=== PATIENT | female | born 1940 | race Caucasian/White ===

== ENCOUNTER → 2023-06-18 10:19 | Outpatient (REF) | payer OTHER, SELFPAY | LOC: RAD 10:19 | PROVIDERS: ATTENDING PHYSICIAN Nurse Practitioner Adult Health; FAMILY PHYSICIAN Specialist | DX: M25.512 Pain in left shoulder (principal); M25.561 Pain in right knee | CPT/HCPCS: 73030; 73564 ==

== ENCOUNTER → 2023-08-28 17:42 | Outpatient (REF) | payer OTHER, SELFPAY | LOC: PAVMRI 17:42 | PROVIDERS: ATTENDING PHYSICIAN Specialist; FAMILY PHYSICIAN Internal Medicine | DX: M25.512 Pain in left shoulder (principal) | CPT/HCPCS: 73221 ==

== ENCOUNTER → 2023-10-12 13:04 | Outpatient (REF) | payer OTHER, SELFPAY | LOC: WDC 13:04 | PROVIDERS: ATTENDING PHYSICIAN Family Medicine | DX: Z12.31 Encounter for screening mammogram for malignant neoplasm of breast (principal) | CPT/HCPCS: 77063; 77067 ==

== ENCOUNTER → 2024-10-13 13:45 | Outpatient (REF) | payer OTHER, SELFPAY | LOC: WDC 13:45 | PROVIDERS: ATTENDING PHYSICIAN Family Medicine | DX: Z12.31 Encounter for screening mammogram for malignant neoplasm of breast (principal) | CPT/HCPCS: 77063; 77067 ==

== ENCOUNTER → 2024-11-22 12:53 | Outpatient (REF) | payer OTHER, SELFPAY | LOC: RCS 12:53 | PROVIDERS: ATTENDING PHYSICIAN Family Medicine | DX: R06.02 Shortness of breath (principal) | CPT/HCPCS: 71046; 93017; 93350 ==